=== PATIENT | male | born 1980 | race Hispanic/Latino ===

== ENCOUNTER 2024-04-21 17:23 | Emergency (ER) | payer SELFPAY ==
[~2024-04-21] VITALS: Ht 165.1 cm; Wt 90.0 kg
[2024-04-21] MEDS ORDERED: Diph, Acellular Pertussis, Tet 0.5 ML/VIAL (Tdap) SDV IM ONE (20:10)
[2024-04-21 20:16] VITALS: BP 166/114
[2024-04-21 20:30] VITALS: BP 167/103
[2024-04-21 20:45] VITALS: BP 171/122
[2024-04-21 21:00] VITALS: BP 152/110
[2024-04-21 21:11] VITALS: BP 152/110
== END 2024-04-21 21:11 | disposition home or self-care (01) | DRG 605 ==
LOC: ED 17:23
DX: S01.81XA Laceration without foreign body of other part of head, initial encounter (principal); Y04.0XXA Assault by unarmed brawl or fight, initial encounter
CPT/HCPCS: 90715